=== PATIENT | female | born 1990 | race Caucasian/White ===

== ENCOUNTER 2018-01-13 21:48 | Emergency (ER) | payer OTHER ==
[~2018-01-13] VITALS: Ht 162.6 cm; Wt 67.0 kg
--- NOTE | 2018-01-13 22:29 | PHYS DOC ---
Adult General Chief Complaint Chief Complaint: HYPERTENSION HPI HPI 27-year-old female 4 months now presents the emergency room complaining of headache after hitting her head yesterday. Patient has a distant history of craniotomy for Schwannoma in 2009. She's had no ongoing neurologic issues since. Yesterday she accidentally bumped her right apical scalp rather hard the patient did not lose consciousness. She complains of headache since hitting her head.Visual changes, speech changes, neck pain or injury, weakness or difficulty with strength or coordination or gait. Patient is also concerned because her blood pressure was elevated in triage. She's been told previously that she has high blood pressure but treatment has never been initiated for this. She has some scalp swelling which is very tender in the area that she bumped her head. Review of Systems Review of Systems Constitutional: Denies fever or chills [] Eyes: Denies change in visual acuity, redness, or eye pain [] HENT: Denies nasal congestion or sore throat [] Respiratory: Denies cough or shortness of breath [] Cardiovascular: No additional information not addressed in HPI [] GI: Denies abdominal pain, nausea, vomiting, bloody stools or diarrhea [] : Denies dysuria or hematuria [] Musculoskeletal: Denies back pain or joint pain [] Integument: Denies rash or skin lesions [] Neurologic: Denies headache, focal weakness or sensory changes [] Endocrine: Denies polyuria or polydipsia [] All other systems were reviewed and found to be within normal limits, except as documented in this note. Allergies Allergies Allergies Coded Allergies Type Severity Reaction Last Updated Verified No Known Drug Allergies 01/13/18 No Physical Exam Physical Exam Normocephalic atraumatic appearing however patient does have some mild soft tissue tenderness and soft tissue swelling in the right apical/parasagittal distribution of her scalp. No laceration. No bony tenderness or step off. No crepitus. No Siegel sign. Normal tympanic membranes bilaterally with no hemotympanum. Nontender C-spine with normal painless range of motion. Pupils equal and reactive bilaterally symmetrical. Extra muscles intact. Speech is normal. Remainder of exam is completely benign including extended neurologic exam with cranial nerves. Normal and symmetrical strength in membership coordinator flexion and extension and lower extremity strength as well. Benign exam Constitutional: Well developed, well nourished, no acute distress, non-toxic appearance. [] HENT: Normocephalic, bilateral external ears normal, oropharynx moist, no oral exudates, nose normal. [] Eyes: PERRLA, EOMI, conjunctiva normal, no discharge. [] Neck: Normal range of motion, no tenderness, supple, no stridor. [] Cardiovascular:Heart rate regular rhythm, no murmur [] Lungs & Thorax: Bilateral breath sounds clear to auscultation [] Abdomen: Bowel sounds normal, soft, no tenderness, no masses, no pulsatile masses. [] Skin: Warm, dry, no erythema, no rash. [] Back: No tenderness, no CVA tenderness. [] Extremities: No tenderness, no cyanosis, no clubbing, ROM intact, no edema. [] Neurologic: Alert and oriented X 3, normal motor function, normal sensory function, no focal deficits noted. [] Psychologic: Affect normal, judgement normal, mood normal. [] EKG EKG [] Radiology/Procedures Radiology/Procedures CT of the head[] Course & Med Decision Making Course & Med Decision Making Pertinent Labs and Imaging studies reviewed. (See chart for details) Signs and symptoms consistent with headache after minor head injury yesterday. Patient did not lose consciousness. She has soft tissue swelling and tenderness of the right scalp but no evidence of bony abnormality. Nonfocal neurologic exam. CT of the head pending to rule out less likely possibility of intracranial injury or skull fracture. Patient's blood pressure is mildly elevated, 150 over 90s on exam. His CT is unremarkable, and anticipate outpatient follow-up with primary care doctor, with Tylenol and ibuprofen as needed. No further workup or treatment will be indicated. Patient and agree with outpatient follow-up and strict return precautions will be given. There were critical importance of close follow-up for recheck of the blood pressure as well and to initiate treatment if this proves to represent essential hypertension. [] Dragon Disclaimer Dragon Disclaimer This electronic medical record was generated, in whole or in part, using a voice recognition dictation system. Departure Departure: Impression: Primary Impression: Minor head injury without loss of consciousness Additional Impression: Scalp contusion Disposition: 01 HOME, SELF-CARE Condition: GOOD Referrals: PCP,UNKNOWN (PCP) Patient Instructions: Facial or Scalp Contusion, Head Injury, Adult Additional Instructions: You have suffered a minor head injury. Your neurologic exam is normal in your CAT scan is unremarkable as well. You have no signs of skull fracture. Apply ice to your scalp if you find this to be helpful for your discomfort. Take ibuprofen 800 mg every 6 hours and Tylenol every 4 hours as needed for pain. Your blood pressure is elevated today at 150/90. This is definitely in the abnormal range and it is important that you follow-up with your primary care doctor to get this rechecked, and to initiate treatment for high blood pressure if indicated. Follow-up with your doctor tomorrow and return immediately for new severe worsening symptoms Problem Qualifiers DEVAUGHN DUARTE MD Jan 13, 2018 22:29
--- NOTE | 2018-01-13 22:34 | RAD ---
CT HEAD INDICATION: Hit top of head on counter yesterday 01/12/18, still having headache with nausea today. No priors. COMPARISON: None Available. TECHNIQUE: 5 mm contiguous axial images were obtained from the skull base to the vertex Exposure: One or more of the following individualized dose reduction techniques were utilized for this examination: 1. Automated exposure control 2. Adjustment of the mA and/or kV according to patient size 3. Use of iterative reconstruction technique FINDINGS: No abnormal attenuation within the brain parenchyma. No evidence of acute intracranial hemorrhage. No extra-axial fluid collections. No mass effect or midline shift. Ventricular size is appropriate. Basal cisterns are patent. No fractures identified.Schulz-white differentiation is preserved.Globes and orbits are within normal limits. Paranasal sinuses and mastoid air cells are clear. IMPRESSION: No acute intracranial findings. Electronically signed by: Dagoberto Tinajero MD (01/13/2018 10:30 PM) [facility]
[2018-01-13 22:52] VITALS: BP 132/85
== END 2018-01-13 22:54 | disposition home or self-care (01) ==
LOC: ER 21:48
DX: S00.03XA Contusion of scalp, initial encounter (principal); W22.8XXA Striking against or struck by other objects, initial encounter; Y93.89 Activity, other specified; Y99.8 Other external cause status; Y92.89 Other specified places as the place of occurrence of the external cause
CPT/HCPCS: 70450; 99284-25

== ENCOUNTER 2018-01-19 03:30 | Emergency (ER) | payer OTHER ==
[~2018-01-19] VITALS: Ht 163 cm; Wt 67.3 kg
[2018-01-19] MEDS ORDERED: 0.9 % SODIUM CHLORIDE 10 ML DISP.SYRIN. IV PRN (03:45)
[2018-01-19] MEDS ORDERED: IV NORMAL SALINE 1,000ML 1,000 ML IV SCH (04:00)
[2018-01-19] MEDS ORDERED: ASPIRIN 81 MG TAB.CHEW PO ONE (04:00)
--- NOTE | 2018-01-19 04:11 | PHYS DOC ---
Past History Past Medical History: Hypertension, Other Additional Past Medical Histor: chronic headaches, placental abruption Past Surgical History: Other Additional Past Surgical Histo: c section, neuroma Smoking: Non-smoker Alcohol Use: None Drug Use: None Adult General Chief Complaint Chief Complaint: HYPERTENSION [facility] HPI Patient is a pleasant 27-year-old female with a known history of neuroma that required surgical intervention presents with chest pain, headache and carpal pedal spasm. She woke up this morning about 1:30 AM when she had a throbbing headache on the left side of her skull which is typical for her location is not worse of life and sudden onset although typical patient began having some chest discomfort described as a pressure across center of her chest with carpal pedal spasm, tingling to her lips and tongue and face and upper hands bilaterally. She had cramps described as aches in both forearms bilaterally and her lower legs and calves. Patient has had a recent born 5 months ago via C- section after she was discovered to be preeclamptic and developing a placental abruption secondary to the high blood pressure. She has had no swelling in her lower legs, no calf pain, she is just recently traveled back in November from [facility] to the [facility] with her . She denies any fevers, chills, change in medications. She denies any focal neurologic deficit this time and her carpopedal spasms and tingling and numbness have resolved. Patient denies any change in vision but did have some tunnel vision at the time, and rushing in her ears bilaterally Differential diagnosis for chest pain: Pericarditis, myocarditis, endocarditis, pneumothorax, pneumonia, aortic dissection, esophageal spasm, esophagitis, peptic ulcer disease, acute coronary syndrome, mediastinitis, Boerhaave syndrome , musculoskeletal chest wall pain, costochondritis, intercostal strain, rib fracture, pulmonary contusion, pneumonitis, pleural effusion, pericardial effusion, pericardial tamponode, and pleurisy. Review of Systems Review of Systems Constitutional: Denies fever or chills [] Eyes: Denies change in visual acuity, redness, or eye pain [] HENT: Denies nasal congestion or sore throat [] Respiratory: Denies cough or shortness of breath [] Cardiovascular: No additional information not addressed in HPI [] GI: Denies abdominal pain, nausea, vomiting, bloody stools or diarrhea [] : Denies dysuria or hematuria [] Musculoskeletal: Denies back pain or joint pain [] Integument: Denies rash or skin lesions [] Neurologic: Positive for headache negative for focal weakness positive for sensory changes of paresthesias in the hands feet or face with carpopedal spasms Endocrine: Denies polyuria or polydipsia [] All other systems were reviewed and found to be within normal limits, except as documented in this note. Current Medications Current Medications Current Medications Medications (Trade) Dose Ordered Sig/Imelda Start Time Stop Time Status Last Admin Dose Admin Aspirin (Children'S Aspirin) 324 mg 1X ONCE 01/19/18 04:00 01/19/18 04:01 Sodium Chloride (Normal Saline Flush) 10 ml QSHIFT PRN 01/19/18 03:45 Allergies Allergies Allergies Coded Allergies Type Severity Reaction Last Updated Verified No Known Drug Allergies 01/13/18 No Physical Exam Physical Exam Of the vital signs on the chart noted HTN otherwise normal Constitutional: Well developed, well nourished, no acute distress, non-toxic appearance. anxious[] HENT: Normocephalic, atraumatic, bilateral external ears normal, oropharynx moist, no oral exudates, nose normal. [] Eyes: PERRLA, EOMI, conjunctiva normal, no discharge. [] Neck: Normal range of motion, no tenderness, supple, no stridor. [] Cardiovascular:Heart rate regular rhythm, no murmur [] Lungs & Thorax: Bilateral breath sounds clear to auscultation [] Abdomen: Bowel sounds normal, soft, no tenderness, no masses, no pulsatile masses. [] Skin: Warm, dry, no erythema, no rash. [] Extremities: No tenderness, no cyanosis, no clubbing, ROM intact, no edema. no carpal pedal spasms noted[] Neurologic: Alert and oriented X 3, normal motor function, normal sensory function, no focal deficits noted. [] Psychologic: Affect normal, judgement normal, anxious but mentating normally[] EKG EKG []EKG read by me 34 6 AM 0-2017 temperature sinus rhythm with a heart rate of 90 ID interval 154, QRS width 90, QTC of 427 which is normal. This is a normal EKG no ST segment T-wave changes consistent with acute coronary ischemia. Radiology/Procedures Radiology/Procedures [] Course & Med Decision Making Course & Med Decision Making Pertinent Labs and Imaging studies reviewed. (See chart for details) []Patient is a pleasant 27-year-old otherwise healthy female who presents with chest pain and anxiety as well as carpopedal spasms of paresthesias so showed hyperventilation. She is 5 months and she has had a headache that began today. She says it's not worsened by percent in onset but is a typical headache that she has an the past. She's had a prior neuroma and the was worried about an intercranial abnormality. Patient was given fluids antiemetics and Toradol for her symptoms. Incidentally on arrival her urine test was positive. Although she has 5 months she is not sexually active and had a menstrual period 2 days ago. Her quantitative hCG was less than 1. Patient's CK was mildly elevated but is likely secondary to the fact that she just worked out yesterday with weights with her in the gym. Her CK-MB and troponin are both negative. Patient' s CBC and CMP otherwise unremarkable patient urinalysis is clear. Chest x-ray read by me demonstrates no pleural effusion, will cardiac shadow, no infiltrate no pneumothorax no other abnormalities. At this point patient is resting comfortably. Patient does not demonstrate any signs of pulmonary emphysema and her d-dimer is negative, Based on the roll and the negative d-dimer patient is likely not having a PE. Criteria: Age < than 50 years Heart rate < 100 Oxygen saturation > 95% No hemoptysis No estrogen use No prior DVT or PE No unilateral leg swelling No surgery or trauma requiring hospitalization within the prior 4 weeks History: Based on history and presentation patient's heart score is 0 Highly suspicious 2 points moderately suspicious 1. slightly suspicious 0 point EKG: ST segment depression 2. nonspecific repolarization disturbance 1. normal 0 point Age: Greater than 65 2 points, 65-45 1., less than 45 years old 0 points Risk factors:> 3 risk factors 2 points, 1-2 risk factors one point, no risk factors 0 point Troponin: > 2 times normal 2 points, 1-2 times normal 1., normal limits 0 point Total score: Score % pts MACE/n MACE Policy 0-3 32% 1.9% 0.05% Discharge 4-6 51% 413/3136 13% 1.3% Observation Risk management 7-10 17% 518/1045 50% 2.8% Observation Treatment, CAG Patient is resting comfortably will be given medications for her tension headache and her anxiety. I will ask her to follow-up with her primary care doctor for any increased symptoms or if she has any question concerns. My discharge plan Although you have low risk chest pain you May still have heart disease despite having an apparent negative workup today. I would advise that you follow-up with your primary care doctor this week to arrange follow-up with her counterperson. The counterperson will help stratify your risk for heart injury in the future. Follow up: In addition patient is asked to followup with their primary doctor, within a week for followup examination and to address patient's ongoing medical conditions. Because patient does not have a regular medical doctor, the [facility] Resource Sheet will be provided to establish care primary care. Patient is advised that in the Emergency Department primary complaints are addressed and only in light of known signs and symptoms. Patient should return immediately to the emergency department if new signs and symptoms develop or patient's condition worsens in any way. At time of discharge patient was in stable condition and had verbalized understanding of the discharge instructions. Dragon Disclaimer Dragon Disclaimer This electronic medical record was generated, in whole or in part, using a voice recognition dictation system. Departure Departure: Impression: Primary Impression: Chest pain Additional Impressions: Anxiety Hyperventilation syndrome Disposition: 01 HOME, SELF-CARE Condition: STABLE Referrals: PCP,UNKNOWN (PCP) Patient Instructions: Anxiety and Panic Attacks, Chest Pain (Nonspecific), General Headache Without Cause Additional Instructions: My discharge plan Although you have low risk chest pain you May still have heart disease despite having an apparent negative workup today. I would advise that you follow-up with your primary care doctor this week to arrange follow-up with her counterperson. The counterperson will help stratify your risk for heart injury in the future. Follow up: In addition patient is asked to followup with their primary doctor, within a week for followup examination and to address patient's ongoing medical conditions. Because patient does not have a regular medical doctor, the [facility] Resource Sheet will be provided to establish care primary care. Patient is advised that in the Emergency Department primary complaints are addressed and only in light of known signs and symptoms. Patient should return immediately to the emergency department if new signs and symptoms develop or patient's condition worsens in any way. At time of discharge patient was in stable condition and had verbalized understanding of the discharge instructions. Scripts Acetaminophen (TYLENOL) 325 Mg Tablet 1-2 TAB PO QID, #30 TAB 2 Refills Prov: ANAHI PACHECO MD 01/19/18 Prochlorperazine Maleate (Compazine) 10 Mg Tablet 10 MG PO TID for 5 Days, #15 TAB Prov: ANAHI PACHECO MD 01/19/18 Lorazepam (ATIVAN) 1 Mg Tablet 1 MG PO TID for 5 Days, #15 TAB Prov: ANAHI PACHECO MD 01/19/18 Naproxen Sodium (NAPROXEN SODIUM) 275 Mg Tablet 275 MG PO BID for 7 Days, #14 TAB Prov: ANAHI PACHECO MD 01/19/18 Problem Qualifiers ANAHI PACHECO MD Jan 19, 2018 04:11
[2018-01-19 04:29] LABS: BASO # 0.1 x10^3/uL (0.0-0.2); BASO % 1 % (0-3); EOS # 0.2 x10^3/uL (0.0-0.7); EOS % 3 % (0-3); HEMATOCRIT 39.3 % (36.0-47.0); HEMOGLOBIN 13.2 g/dL (12.0-15.5); LYMPH # 2.9 x10^3/uL (1.0-4.8); LYMPH % 41 % (24-48); MEAN CORPUSCULAR HEMOGLOBIN 29 pg (25-35); MEAN CORPUSCULAR HGB CONC 34 g/dL (31-37); MEAN CORPUSCULAR VOLUME 85 fL (79-100); MONO # 0.6 x10^3/uL (0.0-1.1); MONO % 8 % (0-9); NEUT # 3.4 x10^3uL (1.8-7.7); NEUT % 48 % (31-73); PLATELET COUNT 246 x10^3/uL (140-400); RED BLOOD COUNT 4.63 x10^6/uL (3.50-5.40); RED CELL DISTRIBUTION WIDTH 16.4 % (11.5-14.5); WHITE BLOOD COUNT 7.1 x10^3/uL (4.0-11.0)
[2018-01-19] MEDS ORDERED: KETOROLAC 30 MG/ML VIAL. IV ONE (04:30)
[2018-01-19] MEDS ORDERED: LORazepam 2 MG/ML VIAL IV ONE (04:30)
[2018-01-19] MEDS ORDERED: PROCHLORPERAZINE 10 MG/2 ML VIAL. IV ONE (04:30)
[2018-01-19 04:44] LABS: BACTERIA,URINE 0 /HPF (0-FEW); BILIRUBIN,URINE NEG (NEG); CLARITY,URINE CLEAR; COLOR,URINE STRAW; GLUCOSE,URINE NEG (NEG); NITRITE,URINE NEG (NEG); RBC,URINE 0 /HPF (0-2); SQUAMOUS EPITHELIAL CELL,UR OCC /LPF; UROBILINOGEN,URINE 0.2 mg/dL (0.2 mg/dL); WBC,URINE RARE /HPF (0-4)
[2018-01-19 04:46] LABS: ALBUMIN 3.5 g/dL (3.4-5.0); ALK PHOS 74 U/L (46-116); ALT (SGPT) 30 U/L (14-59); ANION GAP 13 (6-14); AST (SGOT) 24 U/L (15-37); BLOOD UREA NITROGEN 15 mg/dL (7-20); CALCIUM 8.7 mg/dL (8.5-10.1); CARBON DIOXIDE 24 mmol/L (21-32); CHLORIDE 101 mmol/L (98-107); CREATININE 0.8 mg/dL (0.6-1.0); GFR 84.8; GLUCOSE 96 mg/dL (70-99); LIPASE 234 U/L (73-393); MAGNESIUM 1.7 mg/dL (1.8-2.4); POTASSIUM 3.2 mmol/L (3.5-5.1); SODIUM 138 mmol/L (136-145); TOTAL BILIRUBIN 0.2 mg/dL (0.2-1.0); TOTAL PROTEIN 7.2 g/dL (6.4-8.2)
[2018-01-19 04:47] LABS: DIRECT BILIRUBIN < 0.1 mg/dL (0.0-0.2)
--- NOTE | 2018-01-19 04:59 | RAD ---
CT head without contrast 01/19/2018 CLINICAL INDICATION: Headache with elevated blood pressure. Recent head injury. COMPARISON: CT head 01/13/2018. TECHNIQUE: Multiple CT images of the head were obtained without contrast according to standard protocol. *One or more of the following individualized dose reduction techniques were utilized for this examination: 1. Automated exposure control. 2. Adjustment of the mA and/or kV according to patient size. 3. Use of iterative reconstruction technique. FINDINGS: No acute intracranial hemorrhage or extra-axial fluid collection. No midline shift. The ventricles and subarachnoid spaces are normal in size and configuration for age. The dumont-white matter interfaces are maintained. The basal cisterns are patent. The mastoid air cells and visualized paranasal sinuses are well aerated. IMPRESSION: No acute intracranial hemorrhage. Electronically signed by: Bobby Stephenson MD (01/19/2018 4:56 AM) [facility]
[2018-01-19 05:37] VITALS: BP 145/66
[2018-01-19] MEDS ORDERED: PROC10TA57 PO (05:38)
[2018-01-19] MEDS ORDERED: ACET325T9 PO (05:38)
[2018-01-19] MEDS ORDERED: NAPR275T59 PO (05:38)
[2018-01-19] MEDS ORDERED: LORA-434 PO (05:38)
[2018-01-19] MEDS ORDERED: POTA10TA10 PO (05:42)
--- NOTE | 2018-01-19 05:46 | EKG ---
[address] [address] Test Date: 2018-01-19 Test Time: 03:46:50 Pat Name: ESPINOZA ZHAO Department: Room: Gender: F Lieutenant/Deputy: TENA : 1990 Requested By: ANAHI PACHECO Order Number: [id number] Reading MD: Rafal Mittal Measurements Intervals [place] Rate: 90 P: 5 UT: 154 QRS: 75 QRSD: 90 T: 36 QT: 346 QTc: 427 Interpretive Statements SINUS RHYTHM NORMAL ECG RI6.01 No previous ECG available for comparison Electronically Signed On 01-22-2018 9:55:08 EC[employer] DOCTOR by Rafal Mittal
--- NOTE | 2018-01-19 08:51 | RAD ---
EXAM: Chest 2 views. HISTORY: Chest pain. COMPARISON: None. FINDINGS: Frontal and lateral views of the chest are obtained. There are no confluent infiltrates. There is no pneumothorax or pleural effusion. The heart is not enlarged. IMPRESSION: 1. No confluent infiltrates.
== END 2018-01-19 05:56 | disposition home or self-care (01) ==
LOC: ER 03:30
DX: F41.9 Anxiety disorder, unspecified (principal); F45.8 Other somatoform disorders; R51 Headache; I10 Essential (primary) hypertension; Z98.890 Other specified postprocedural states
CPT/HCPCS: 36415; 70450; 71046; 80048; 80076; 81001; 81025; 82553; 83690; 83735; 83880; 84443; 84484; 84702; 85025; 85379; 93005; 96361; 96374; 96375; 99285; J0780; J1885; J2060; J7030